=== PATIENT | female | born 1960 | race Caucasian/White ===

== ENCOUNTER → 2016-10-08 | Outpatient (CLI) | payer OTHER | LOC: BRMIMAGING 12:35 | DX: Z12.31 Encounter for screening mammogram for malignant neoplasm of breast (principal) | CPT/HCPCS: G0202 ==

== ENCOUNTER → 2017-10-12 | Outpatient (CLI) | payer OTHER | LOC: BRMIMAGING 07:55 | PROVIDERS: ATTEND Obstetrics & Gynecology | DX: Z12.31 Encounter for screening mammogram for malignant neoplasm of breast (principal) ==

== ENCOUNTER → 2018-10-13 | Outpatient (CLI) | payer OTHER | LOC: BRMIMAGING 14:51 | PROVIDERS: ATTEND Obstetrics & Gynecology | DX: Z12.31 Encounter for screening mammogram for malignant neoplasm of breast (principal) ==

== ENCOUNTER → 2018-10-21 | Outpatient (CLI) | payer OTHER | LOC: BRMIMAGING 15:41 | DX: J98.4 Other disorders of lung (principal); J45.909 Unspecified asthma, uncomplicated | CPT/HCPCS: 71046-PO ==

== ENCOUNTER → 2018-11-02 | Outpatient (CLI) | payer OTHER | LOC: CIMAGING 09:35 | DX: J98.4 Other disorders of lung (principal) | CPT/HCPCS: 71250-PO ==